=== PATIENT | female | born 1990 | race Caucasian/White ===

== ENCOUNTER 2016-11-26 07:15 | Day surgery (SDC) | payer MEDICAID ==
[~2016-11-26 07:15] MED LIST: Midazolam 1 MG/ML 2 ML SDV ONE; Propofol 200 MG/20 ML SDV ONE; fentaNYL 100 MCG/2 ML SDV ONE
[2016-11-26] MEDS: Dextrose 5%-Lactated Ringers 1,000 ML IV SCH ×2 (08:01→09:19)
[2016-11-26] MEDS ORDERED: Glycopyrrolate 0.2 MG/ML 2 ML SYRINGE IVPUSH ONE (08:45)
[2016-11-26] MEDS ORDERED: Propofol 200 MG/20 ML SDV ONE (08:54)
[2016-11-26] MEDS ORDERED: Midazolam 1 MG/ML 2 ML SDV ONE (08:55)
[2016-11-26] MEDS ORDERED: fentaNYL 100 MCG/2 ML SDV ONE (08:55)
[2016-11-26 10:36] VITALS: BP 98/61
--- NOTE | 2016-11-30 08:55 | OR ---
DATE OF PROCEDURE: 11/26/2016 PREOPERATIVE DIAGNOSIS: Weight regain status post Uri-en-Y gastric bypass. POSTOPERATIVE DIAGNOSIS: Weight regain status post Uri-en-Y gastric bypass, associated with: 1. Formation of gastrogastric fistula. 2. Very large pouch and gastrojejunostomy. OPERATIVE PROCEDURE: Upper GI endoscopy with biopsy of gastric pouch for CLOtest. ANESTHESIA: IV sedation. INDICATIONS FOR PROCEDURE: This is a 26-year-old female presenting with a previous history of Uri-en-Y gastric bypass, now with significant weight regain, to evaluate possible anatomic deficiency of her gastric bypass. Plan is proceed with upper GI endoscopy with biopsies as indicated. Potential risks including bleeding and perforation were discussed, and the patient wishes to proceed. DETAILS OF PROCEDURE: The patient was taken to the operating room and placed in a left lateral decubitus position. IV sedation was administered, after which the upper GI endoscope was passed orally through the length of the esophagus to that level, no abnormalities were noted at the level of esophagus and EG junction. As we entered the gastric pouch, it was noted to be strikingly enlarged and was measured from the gastrojejunostomy to the mucosal EG junction to be 11 cm. The gastrojejunostomy was also strikingly enlarged measuring around 5-6 cm and additionally, the patient also had a gastrogastric fistula with a roughly 1.5 cm fistula extending from the gastric pouch into the remainder of the stomach. This was easily traversed by the gastroscope and the scope then passed from that point through the pyloric sphincter and roughly to the junction of the second and third portions of the duodenum. There was some mild redness within the gastric pouch, likely related to some bile reflux, otherwise, no areas of significant inflammation were noted. However, the patient's anatomy certainly was not conducive to adequate restriction with both very large gastric pouch, gastrojejunostomy, and gastrogastric fistula, all contributing to her weight regain. Biopsies were obtained from the gastric pouch and sent for CLOtest for H. pylori. Minimal bleeding from the biopsy site was seen and the procedure then concluded. The patient appeared to be a good candidate for a revisional procedure, and we will try to assist with her insurance carrier to attempt to obtain approval for a revision of her gastric bypass. Michael Rhodes MD /[id number]
== END 2016-11-26 10:45 | disposition home or self-care (01) ==
LOC: JP.SDS 07:15
PROVIDERS: ATTEND Surgery
DX: K31.6 Fistula of stomach and duodenum (principal); F32.9 Major depressive disorder, single episode, unspecified; E66.9 Obesity, unspecified; Z98.84 Bariatric surgery status
CPT/HCPCS: 43239; 87081; J2250; J2704; J3010; J7042

== ENCOUNTER 2017-06-27 09:21 | Inpatient (IN) | payer MEDICAID ==
[~2017-06-27 09:21] MED LIST changes: -Midazolam 1 MG/ML 2 ML SDV ONE; -Propofol 200 MG/20 ML SDV ONE; +cefOXitin 2 GM Vial ONE; -fentaNYL 100 MCG/2 ML SDV ONE
[2017-06-27] MEDS ORDERED: Celecoxib 200 MG Cap PO ONE (09:45)
[2017-06-27] MEDS ORDERED: Gabapentin 300 MG Cap PO ONE (09:45)
[2017-06-27] MEDS ORDERED: Scopolamine 1.5 MG Transdermal Patch TRDERM SCH (09:45)
[2017-06-27] MEDS ORDERED: Acetaminophen 325 MG Tab PO ONE (09:45)
[2017-06-27] MEDS ORDERED: Acetaminophen 500 MG Tab PO ONE (10:00)
[2017-06-27] MEDS ORDERED: Dextrose 5%-Lactated Ringers 1,000 ML IV SCH (10:30)
[2017-06-27] MEDS ORDERED: Lidocaine 2% 100 MG/5 ML Syringe IVPUSH ONE (11:45)
[2017-06-27] MEDS ORDERED: Ropivacaine 58 ML, Dexamethasone 8 MG, EPINEPHrine 0.4 MG, Sodium Chloride 0.9% 19.6 ML NERVRT ONE ×4 (11:45)
[2017-06-27] MEDS ORDERED: Ketamine 500 MG/5 ML MDV IV ONE (11:45)
[2017-06-27] MEDS ORDERED: fentaNYL 250 MCG/5 ML SDV ONE ×2 (12:17→13:00)
[2017-06-27] MEDS ORDERED: Midazolam 1 MG/ML 2 ML SDV ONE (12:17)
[2017-06-27] MEDS ORDERED: Dexamethasone 4 MG/ML SDV ONE (12:18)
[2017-06-27] MEDS ORDERED: Rocuronium 50 MG/5 ML Vial ONE (12:18)
[2017-06-27] MEDS ORDERED: Propofol 200 MG/20 ML SDV ONE (12:18)
[2017-06-27] MEDS ORDERED: Glycopyrrolate 0.2 MG/ML 5 ML MDV ONE (12:18)
[2017-06-27] MEDS ORDERED: Succinylcholine 200 MG/10 ML MDV ONE (12:18)
[2017-06-27] MEDS ORDERED: Ondansetron 4 MG/2 ML SDV ONE (12:18)
[2017-06-27] MEDS ORDERED: Neostigmine Methylsulfate 1 MG/ML 5 ML Syringe ONE (12:18)
[2017-06-27] MEDS: cefOXitin 2 GM in Sodium Chloride 0.9% 50 ML IV ONE ×2 (12:21→16:57)
[2017-06-27] MEDS ORDERED: Lactated Ringers 1,000 ML ONE (14:10)
[2017-06-27] MEDS ORDERED: fentaNYL 100 MCG/2 ML SDV IVPUSH ONE (15:05)
[2017-06-27] MEDS ORDERED: hydrOXYzine HCl 100 MG/2 ML SDV IM ONE ×2 (15:05→17:40)
[2017-06-27] MEDS: Lidocaine 0.4%/D5W 2 GM/500 ML BAG IV SCH (16:17)
[2017-06-27] MEDS: hydrOXYzine HCl 100 MG/2 ML SDV IM PRN ×2 (16:56→21:30)
[2017-06-27] MEDS ORDERED: Labetalol 20 MG/4 ML Syringe IVPUSH PRN (17:00)
[2017-06-27] MEDS ORDERED: MVI, Adult with Vitamin K 10 ML, Thiamine 200 MG, Chromium/Copper/Mang/Selen/Zn 1 ML in... IV SCH ×4 (17:00)
[2017-06-27] MEDS ORDERED: Ondansetron 4 MG/2 ML SDV IVPUSH PRN (17:00)
[2017-06-27] MEDS ORDERED: Pantoprazole 40 MG Vial IVPUSH SCH (17:00)
[2017-06-27] MEDS ORDERED: Metoclopramide 10 MG/2 ML SDV IVPUSH PRN (17:00)
[2017-06-27] MEDS ORDERED: diphenhydrAMINE 50 MG/ML SDV IVPUSH PRN (17:00)
[2017-06-27] MEDS: cefOXitin 2 GM in Sodium Chloride 0.9% 50 ML IV SCH ×2 (17:21→23:15)
[2017-06-27] MEDS ORDERED: Meperidine PF 100 MG/ML Syringe IM ONE (17:40)
[2017-06-27] MEDS: Acetaminophen Soln 650 MG/20.3 ML UD Cup PO SCH ×2 (17:43→23:15)
[2017-06-27] MEDS: Magnesium Sulfate/Water 2 GM in Premix Bag 1 BAG IV SCH ×2 (17:44→23:15)
[2017-06-27] MEDS: Gabapentin 250 MG/5 ML Solution ML 470 ML Bottle PO SCH (20:11)
[2017-06-27] MEDS: Heparin Sodium 5,000 Units/ML Vial SUBCUT SCH (20:11)
[2017-06-27] MEDS: Dextrose 5%-Lactated Ringers 1,000 ML IV SCH (23:17)
[2017-06-28] MEDS ORDERED: Iohexol 647 MG/ML 50 ML SDV PO STA (03:22)
[2017-06-28] MEDS: hydrOXYzine HCl 100 MG/2 ML SDV IM PRN (04:26)
[2017-06-28] MEDS: Lidocaine 0.4%/D5W 2 GM/500 ML BAG IV SCH (04:26)
[2017-06-28] MEDS: Acetaminophen Soln 650 MG/20.3 ML UD Cup PO SCH ×3 (04:33→17:32)
[2017-06-28] MEDS: Magnesium Sulfate/Water 2 GM in Premix Bag 1 BAG IV SCH ×3 (05:15→17:32)
[2017-06-28] MEDS: cefOXitin 2 GM in Sodium Chloride 0.9% 50 ML IV SCH ×2 (05:15→11:11)
[2017-06-28] MEDS: Dextrose 5%-Lactated Ringers 1,000 ML IV SCH (06:34)
[2017-06-28] MEDS ORDERED: Dextrose 5%-Lactated Ringers 1,000 ML IV SCH (08:00)
[2017-06-28] MEDS: Celecoxib 200 MG Cap PO SCH (08:00)
[2017-06-28] MEDS: Heparin Sodium 5,000 Units/ML Vial SUBCUT SCH ×2 (08:01→21:39)
[2017-06-28] MEDS: SCOPOLAMINE PATCH CHECK TOP SCH (08:01)
[2017-06-28] MEDS: Gabapentin 250 MG/5 ML Solution ML 470 ML Bottle PO SCH ×3 (08:07→21:39)
[2017-06-28] MEDS: HYDROmorphone 2 MG Tab PO PRN ×3 (08:07→21:47)
--- NOTE | 2017-06-28 08:20 | CR ---
UGI wo KUB HISTORY: eval R -Y GBP FINDINGS: After administration of oral contrast, upright views were obtained. Post operative changes gastric bypass. Surgical drains in place. No evidence for leak. Contrast passes freely into proximal small bowel loops. IMPRESSION: No evidence for leak or obstruction.
[2017-06-28] MEDS ORDERED: valACYclovir 1,000 MG Tab PO SCH (09:00)
[2017-06-28] MEDS ORDERED: valACYclovir 1,000 MG Tab PO PRN (10:46)
[2017-06-28] MEDS: Sertraline 50 MG Tab PO SCH (11:05)
[2017-06-28] MEDS: Iron Sucrose Complex 500 MG in Sodium Chloride 0.9% 250 ML IV SCH (11:06)
[2017-06-28] MEDS ORDERED: Tamsulosin 0.4 MG Cap.ER PO STA (14:22)
[2017-06-28] MEDS: Lansoprazole 30 MG Orally Disintegrating Tab.CR PO SCH (15:51)
[2017-06-28] MEDS ORDERED: MVI, Adult with Vitamin K 10 ML, Thiamine 200 MG, Chromium/Copper/Mang/Selen/Zn 1 ML in... IV SCH ×4 (16:00)
[2017-06-28] MEDS: Tamsulosin 0.4 MG Cap.ER PO SCH (21:38)
[2017-06-29] MEDS: Acetaminophen Soln 650 MG/20.3 ML UD Cup PO SCH ×5 (00:26→23:56)
[2017-06-29] MEDS: Magnesium Sulfate/Water 2 GM in Premix Bag 1 BAG IV SCH ×4 (00:26→12:29)
[2017-06-29] MEDS: HYDROmorphone 2 MG Tab PO PRN ×6 (02:24→23:56)
[2017-06-29] MEDS ORDERED: Ondansetron 4 MG Tab.DIS PO PRN (07:53)
[2017-06-29] MEDS: Heparin Sodium 5,000 Units/ML Vial SUBCUT SCH ×2 (08:23→19:41)
[2017-06-29] MEDS: Celecoxib 200 MG Cap PO SCH (08:24)
[2017-06-29] MEDS ORDERED: Cyanocobalamin (Vitamin B12) 1,000 MCG/ML SDV IM ONE (09:00)
--- NOTE | 2017-06-29 09:08 | PN ---
DATE OF SERVICE: 06/29/2017 SUBJECTIVE: Madelyn is postop day #2. She is receiving her second dose of Venofer today. She had urinary retention yesterday. A Harden catheter was replaced. Had 1 bowel movement, and taking Dilaudid p.r.n. for pain. Up, ambulating. Oral intake 880. REVIEW OF SYSTEMS: Remainder of review of systems negative for any pertinent positives and negatives. OBJECTIVE: GENERAL: Madelyn Mustafa is a 27-year-old female. VITAL SIGNS: TPR is 97.1, 73, 15. Blood pressure is 90/50. HEENT: Negative. NECK: Supple. HEART: Regular rate and rhythm. LUNGS: Clear. ABDOMEN: Dressings dry and intact. ROGERIO drain has put out 80 mL of a light pink serosanguineous drainage. Abdominal binder is on. EXTREMITIES: She has knee-high SINDI hose on. She had surgery on her vein. ASSESSMENT: Diagnostic laparoscopy with revision of Uri-en-Y gastric bypass surgery in conjunction with repair of the gastrogastric fistula and repair of paraesophageal diaphragmatic hernia, for history of Uri-en-Y gastric bypass surgery with gastrogastric fistula and persistent obesity and paraesophageal diaphragmatic hernia. Date of surgery on 06/27/2017, Michael Rhodes M.D. PLAN: 1. Encourage ambulation. 2. Communication order for 3 med cups, 1 q.20 minutes or 3 per hour, record at bedside. 3. Discontinue Harden catheter. 4. Dressing off. 5. May shower. 6. Convert IV to saline lock if oral intake adequate. 7. Zofran ODT 4 mg q.4 hours p.r.n. nausea, vomiting. 8. Good pulmonary toilet. 9. We will evaluate p.r.n. or in the a.m. Glenna Escalera PA-C /[id number]
[2017-06-29] MEDS: Gabapentin 250 MG/5 ML Solution ML 470 ML Bottle PO SCH ×3 (09:40→21:07)
[2017-06-29] MEDS: Sertraline 50 MG Tab PO SCH (09:43)
[2017-06-29] MEDS: SCOPOLAMINE PATCH CHECK TOP SCH (09:44)
[2017-06-29] MEDS: Iron Sucrose Complex 500 MG in Sodium Chloride 0.9% 250 ML IV SCH (13:12)
[2017-06-29] MEDS: Lansoprazole 30 MG Orally Disintegrating Tab.CR PO SCH (15:40)
--- NOTE | 2017-06-29 16:38 | PN ---
DATE OF SERVICE: 06/28/2017 The patient has been afebrile with stable vital signs. Oral intake has been fairly good. We will give her a step-3 diet today. Upper GI x-ray looked good. We will restart her Valtrex and Zoloft. She has a history of previous vein stripping, and the patient requests providing her with some knee-high SINDI hose in addition to the SCDs. Her pain control is a little bit marginal with the enhanced recovery protocol, and we will add some Dilaudid orally p.r.n. today as well. Michael Rhodes MD /[id number]
[2017-06-29] MEDS: Tamsulosin 0.4 MG Cap.ER PO SCH (21:03)
[2017-06-30] MEDS: Acetaminophen Soln 650 MG/20.3 ML UD Cup PO SCH ×2 (05:13→12:35)
[2017-06-30] MEDS: HYDROmorphone 2 MG Tab PO PRN ×3 (05:14→15:45)
[2017-06-30] MEDS: Gabapentin 250 MG/5 ML Solution ML 470 ML Bottle PO SCH (09:20)
[2017-06-30] MEDS: Heparin Sodium 5,000 Units/ML Vial SUBCUT SCH (09:20)
[2017-06-30] MEDS: Celecoxib 200 MG Cap PO SCH (09:20)
[2017-06-30] MEDS: Sertraline 50 MG Tab PO SCH (09:21)
--- NOTE | 2017-06-30 09:41 | OR ---
DATE OF PROCEDURE: 06/27/2017 PREOPERATIVE DIAGNOSES: History of Uri-en-Y gastric bypass with persistent obesity associated with gastrogastric fistula. POSTOPERATIVE DIAGNOSES: 1. History of Uri-en-Y gastric bypass with persistent obesity associated with gastrogastric fistula. 2. Paraesophageal diaphragmatic hernia. OPERATIVE PROCEDURE: Diagnostic laparoscopy with: 1. Revision of Uri-en-Y gastric bypass in conjunction with ligation of gastrogastric fistula (01782). 2. Repair of paraesophageal diaphragmatic hernia (52035). ANESTHESIA: General. HOSTING ENGINEER: Glenna Escalera PA-C. INDICATION FOR PROCEDURE: This is a 27-year-old, status post previous Uri-en-Y gastric bypass done in [facility], presents now with persistent obesity and recent significant weight regain. An upper GI endoscopy showed a very large gastric pouch, gastrojejunostomy, along with the gastrogastric fistula. Plan is to proceed with a revisional procedure, which would include reduction of the gastric pouch and gastrojejunostomy size, along with excision of the fistula. We would also rearrange the small bowel, such that there would be more in the way of malabsorption. The potential risks of the procedure including bleeding, infection, leaks from various GI tract closures, problems with significant loose bowel movements or diarrhea and potential additional complications requiring additional revision with the shortened functioning small bowel was all reviewed along with the remote possibility of cardiopulmonary, septic, or hemorrhagic complications leading to and the patient wishes to proceed. DETAILS OF PROCEDURE: The patient was taken to the operating room, placed in a supine position. After general endotracheal anesthesia was induced, the patient was placed in the lithotomy position. Bilateral subcostal transversus abdominis plane blocks were then placed using continuous ultrasound guidance, with the usual formula. Following this, the abdomen was prepped and draped. At 15 cm inferior, 5 cm left of xiphoid process, a transverse incision was made and peritoneal cavity entered under direct vision with an Optiview trocar and inflated to 15 mmHg pressure of CO2. Laparoscope was then reinserted. No underlying trocar insertion site injuries were seen. Following this, 5 additional trocars were placed across the upper and mid abdomen, and general exploration was undertaken. The patient noted to have a normal- appearing liver. It was confirmed at that point that her Uri limb had been brought in an antegastric antecolic manner, making the procedure otherwise more straightforward. At this point, the dissection began along the edge of the Uri limb and then continued along the stapled off blind end. This then allowed dissection behind the stomach at that level. The stomach adjacent to the gastric pouch and gastrojejunostomy was then sequentially divided with FABRIZIO black loads up to the level of the diaphragm. This then allowed reduction of the pouch size with inherent ligation of the gastrogastric fistula. A 32-Yakut Serafin tube was passed orally and directed through the gastric pouch and from there into the main portion of the Uri limb. Then, beginning on the blind end of the Uri limb, a portion of this was excised and the staple line, using black loads, continued up snugly against the Serafin tube until the entire length of that segment was excised at the level of the diaphragm. The staple lines were noted to be intact at this point, and that specimen, which consisted of two pieces, was subsequently removed from the abdomen. The patient was also noted to have an anterior paraesophageal diaphragmatic hernia, which contained some perigastric fat, and this was reduced and also closed with some 0 Ethibond sutures, reinforced with PTFE pledgets. Attention was then taken to the small bowel component. The patient was noted to have, at this point, a quite short biliopancreatic limb at around 20 cm. The Uri limb was marked out at this point and was noted to be 85 cm. Given this, the Uri limb was then divided, more or less flush with the jejunojejunostomy. A small amount of this became ischemic, and roughly 5 cm was excised with an additional FABRIZIO firing with remaining portion of that Uri limb then being satisfactorily vascularized and mobile for subsequent anastomosis. The ileocecal valve was then identified, and the small bowel was traced back 250 cm. At that point, the [id number] enteroenterostomy was accomplished between the end of the Uri limb and the small bowel at that level. This would give the patient a total alimentary length of 330 cm with a common limb of 250 cm and a Uri limb all of 80 cm. This is a patient historically is somewhat difficult to maintain followup, so we were somewhat conservative with regard to the limb lengths, in terms of not making the common limb too short. This anastomosis was accomplished with internal firing of the FABRIZIO small loads and the common opening closed transversely with the purple load. The angles were anastomosed, and the mesenteric defect was then approximated with some 0 Ethibond stitch, and at that point, no further problems were noted. The abdomen was irrigated with an antibiotic-containing saline solution. The new gastric staple line was reinforced with some fibrin sealant and then a single Yogesh-Osborne drain was placed through the left lateral trocar site. The trocars were then removed, the peritoneal cavity was deflated, and the incision was closed with some 4-0 Vicryl skin stitch, which was also used to fix the drain. The patient was taken to the recovery room in satisfactory condition. Physician anesthesiologists' assistant, Glenna Escalera, played an essential role in assisting in this case, helping to position the patient, retract structures as needed, as well as suturing and cutting sutures when indicated. Her presence improved patient safety and decreased operative time. Michael Rhodes MD /[id number]
[2017-06-30 10:37] VITALS: BP 102/54
--- NOTE | 2017-06-30 13:17 | DISCH ---
ADMISSION DIAGNOSES: 1. Morbid obesity, 39.9. 2. History of gastric bypass surgery with weight regain. 3. Chronic maxillary sinusitis. 4. Depression. 5. Herpes. 6. Myalgia. 7. Myositis. 8. Unspecified varicose veins bilateral lower legs. 9. Low ferritin. DISCHARGE DIAGNOSES: 1. Diagnostic laparoscopy with revision of Uri-en-Y gastric bypass surgery in conjunction with repair of gastrogastric fistula and repair of paraesophageal diaphragmatic hernia for history of Uri-en-Y gastric bypass surgery with gastrogastric fistula and obesity with paraesophageal diaphragmatic hernia. Date of surgery, 06/27/2017, Michael Rhodes MD. 2. Low ferritin requiring IV Venofer 500 mg x2. 3. Urinary retention requiring discharge with Harden catheter. HISTORY: Madelyn Mustafa is a pleasant 27-year-old female with weight regain after Uri-en- Y gastric bypass surgery and EEG revealed a gastrogastric fistula. After preoperative evaluation and discussion of possible risks and possible complications, she wished to proceed with surgical procedure. HOSPITAL COURSE: Madelyn had her surgery on 06/27/2017. She had no operative complications. On postop day #1, her upper GI was normal. She was not able to urinate and catheter was replaced. On postop day #2, the catheter was removed, but had to be replaced. She again was not able to void. She was able to be discharged to home on 06/30/2017 with a Harden catheter. She received adequate nutritional education. Vital signs were stable. Oral intake was adequate and activity was good. PHYSICAL EXAMINATION: GENERAL: Madelyn Mustafa is a 27-year-old female. VITAL SIGNS: Height 5 feet 7 inches. Weight is 255 pounds. TPR is 98.6, 91, 16, and blood pressure 99/43. HEENT: Negative. NECK: Supple. HEART: Regular rate and rhythm. LUNGS: Clear. ABDOMEN: 4x4 over ROGERIO drain site. Sutures in place and healing well. Abdominal binder is on. EXTREMITIES: Without peripheral edema. DISPOSITION: Discharged to home. CONDITION: Stable and improving. FOLLOWUP APPOINTMENT: On 07/08/2017 at 11 a.m. DISCHARGE MEDICATIONS: Home medications; 1. Tylenol 650 mg oral q.6 hours, 20 mL and 1200 mL given. 2. Dilaudid 2 mg 1 to 2 every 4 hours p.r.n. pain, #30. 3. Zofran ODT 4 mg q.4 hours p.r.n. nausea, #30. 4. Flomax 0.4 mg at bedtime, #7. She is to resume taking her; 1. Zoloft 50 mg oral daily. 2. Valtrex 500 mg oral daily. 3. Stop taking all vitamins and supplements until first postop appointment. DISCHARGE DIET: Step-3 gastric bypass diet. ACTIVITY: No lifting greater than 10 pounds for 2 weeks[address], do not drive for 1 week or while on pain medication. Shower/bathing, may shower. DISCHARGE INSTRUCTIONS: 1. Notify provider if any fever, increased pain, nausea, or vomiting. Keep site clean and dry. Wear abdominal binder for 2 weeks and then as tolerated. Special instruction; use incentive spirometer 10 times every hour while awake. 2. On 07/04/2017, remove Harden catheter. If not able to urinate within 8 hours or you start to feel uncomfortable, go to your clinic or emergency room.
== END 2017-06-30 17:59 | disposition home or self-care (01) | DRG 620 ==
LOC: JP.SDSSCHI 09:21 → JP.SDS 09:21 → EDSTATUS 09:30 → JP.2SS 14:55
PROVIDERS: ADMIT Surgery; ATTEND Surgery
PROC: 0D164ZA Bypass Stomach to Jejunum, Percutaneous Endoscopic Approach (ICD-10-PCS; principal; 2017-06-27)
PROC: 0BQT4ZZ Repair Diaphragm, Percutaneous Endoscopic Approach (ICD-10-PCS; 2017-06-27)
PROC: 3E0T3BZ Introduction of Anesthetic Agent into Peripheral Nerves and Plexi, Percutaneous Approach (ICD-10-PCS; 2017-06-27)
DX: E66.01 Morbid (severe) obesity due to excess calories (principal); K31.6 Fistula of stomach and duodenum; K91.2 Postsurgical malabsorption, not elsewhere classified; Z68.41 Body mass index [BMI] 40.0-44.9, adult; K44.9 Diaphragmatic hernia without obstruction or gangrene; Z98.84 Bariatric surgery status; Z98.0 Intestinal bypass and anastomosis status; E53.8 Deficiency of other specified B group vitamins; E55.9 Vitamin D deficiency, unspecified; F32.9 Major depressive disorder, single episode, unspecified; D50.9 Iron deficiency anemia, unspecified; Z87.42 Personal history of other diseases of the female genital tract; A60.00 Herpesviral infection of urogenital system, unspecified; R63.5 Abnormal weight gain
CPT/HCPCS: 36415; 51702; 74240; 74240-26; 80048; 83735; 84100; 85027; 86850; 86900; 86901; 88307; A9270-GY; C9113; J0171; J0330; J0694; J1100; J1644; J1756; J2001; J2175; J2250; J2405; J2704; J2710; J2795; J3010; J3410; J3411; J3420; J3475; J7030; J7042; J7050; J7120; Q9967